=== PATIENT | female | born 1935 | race African-American/Black ===

== ENCOUNTER 2020-05-27 22:25 | Inpatient (IN) ==
[2020-05-27 22:51] LABS: Basophils % 0.3 % (0.0-0.8); Hematocrit 38.3 VOL% (35.7-47.0); Hemoglobin 12.3 GM/DL (12.0-16.0); Immature Granulocytes % 0.4 %; Immature Granulocytes Absolute 0.03 #; Lymphocytes # 1.1 10*3/uL (1.4-4.0); Lymphocytes % 16.6 % (21.3-54.2); Mean Corpuscular HGB Conc 32.1 GM/DL (32-36); Mean Corpuscular Volume 80.1 FL (87-102); Mean Platelet Volume 9.9 FL (9.6-12.0); Monocytes % 9.7 % (1.7-12.7); Platelet Count 180 T/CUMM (130-400); Red Blood Count 4.78 MC/CUMM (3.8-5.5); Red Cell Distribution Width 13.8 % (9.3-17.3); White Blood Count 6.8 T/CUMM (4-12)
[2020-05-27 23:06] LABS: INR 1.1; PT Patient Result 11.7 SECS (9.8-11.9); Partial Thromboplastin Time 29.5 SECS (23.9-33.8)
[2020-05-27 23:10] LABS: Albumin 3.3 G/DL (3.4-5.0); Bilirubin,Total 0.5 MG/DL (0.2-1.0); Calcium 8.4 MG/DL (8.5-10.1); Osmolality,Calculated 279.2 MOS/KG (273-304); Total Protein 7.5 G/DL (6.4-8.3)
[2020-05-27 23:13] LABS: Troponin I 0.047 NG/ML (0.00-0.045)
[2020-05-27 23:25] LABS: Apearance,Urine CLEAR (Clear); Bacteria,Urine Many /HPF (Few); Bilirubin,Urine Negative (Negative); Blood, Urine Small mg/dL (Negative); Glucose,Urine (UA) Negative (Negative); Ketones,Urine Negative (Negative); Nitrite,Urine Negative (Negative); Protein,Urine Negative; RBC,Urine 1 /HPF (0-4); Squamous Epithelial Cell,Urine Occasional /HPF (0-10); Urine Color Yellow (Yellow); Urine Specific Gravity 1.009 (1.001-1.035); Urine Urobilinogen < 2.0 EU/DL (0.2-1.0); WBC,Urine 3 /HPF (0-6)
[2020-05-27] MEDS ORDERED: POTASSIUM CHLORIDE 20 MEQ/15 ML UDCUP PO ONE (23:47)
[2020-05-28] MEDS ORDERED: ACETAMINOPHEN 325 MG TABLET PO PRN (00:38)
[2020-05-28 02:36] LABS: Uric Acid 8.5 MG/DL (2.6-6.0)
[2020-05-28] MEDS: ENOXAPARIN 60 MG/0.6 ML SYRINGE SUBCUT SCH ×3 (03:40→23:35)
[2020-05-28] MEDS: SODIUM CHLORIDE 0.9% 1,000 ML IV SCH ×2 (03:40→23:35)
[2020-05-28 07:02] LABS: Basophils % 0.2 % (0.0-0.8); Hematocrit 35.8 VOL% (35.7-47.0); Hemoglobin 11.8 GM/DL (12.0-16.0); Immature Granulocytes % 0.4 %; Immature Granulocytes Absolute 0.02 #; Lymphocytes # 1.4 10*3/uL (1.4-4.0); Lymphocytes % 30.9 % (21.3-54.2); Mean Corpuscular Volume 79.2 FL (87-102); Mean Platelet Volume 10.4 FL (9.6-12.0); Monocytes % 13.8 % (1.7-12.7); Neutrophils % 54.7 % (38.7-73.9); Platelet Count 154 T/CUMM (130-400); Red Blood Count 4.52 MC/CUMM (3.8-5.5); Red Cell Distribution Width 13.9 % (9.3-17.3); White Blood Count 4.6 T/CUMM (4-12)
[2020-05-28 07:52] LABS: Calcium 8.7 MG/DL (8.5-10.1); Risk Ratio 3.53; Thyroid Stimulating Hormone 1.22 uIU/ml (0.358-3.74); VLDL CHOLESTEROL 16.8 MG/DL
[2020-05-28] MEDS: atenoloL 50 MG TABLET PO SCH (08:41)
[2020-05-28] MEDS: ASPIRIN EC 81 MG TABLET PO SCH (08:42)
[2020-05-28] MEDS: PANTOPRAZOLE 40 MG TABLET PO SCH (08:42)
[2020-05-28] MEDS: POTASSIUM CHLORIDE 20 MEQ TABLET PO PRN ×5 (08:44→18:54)
[2020-05-29 06:09] LABS: Basophils % 0.6 % (0.0-0.8); Eosinophils % 0.3 % (0.00-10.9); Hematocrit 33.3 VOL% (35.7-47.0); Hemoglobin 10.8 GM/DL (12.0-16.0); Immature Granulocytes % 0.6 %; Immature Granulocytes Absolute 0.02 #; Lymphocytes # 1.1 10*3/uL (1.4-4.0); Lymphocytes % 29.8 % (21.3-54.2); Mean Corpuscular HGB Conc 32.4 GM/DL (32-36); Mean Corpuscular Volume 79.7 FL (87-102); Monocytes % 14.2 % (1.7-12.7); Neutrophils % 54.5 % (38.7-73.9); Platelet Count 141 T/CUMM (130-400); Red Blood Count 4.18 MC/CUMM (3.8-5.5); Red Cell Distribution Width 13.6 % (9.3-17.3); White Blood Count 3.6 T/CUMM (4-12)
[2020-05-29 06:28] LABS: Calcium 8.4 MG/DL (8.5-10.1)
[2020-05-29] MEDS: PANTOPRAZOLE 40 MG TABLET PO SCH (08:55)
[2020-05-29] MEDS: atenoloL 50 MG TABLET PO SCH (08:55)
[2020-05-29] MEDS: ASPIRIN EC 81 MG TABLET PO SCH (08:56)
[2020-05-29 11:46] VITALS: BP 108/86
[2020-05-29] MEDS: ENOXAPARIN 60 MG/0.6 ML SYRINGE SUBCUT SCH (13:40)
== END 2020-05-29 15:29 | disposition home health service (06) | DRG 682 ==
LOC: EDUNIT# → EDBD → N.ED 22:25 → N.EDINP 05-28 00:14 → SUATTDRO 05-28 00:14 → N.EDINP 05-28 01:04 → N.TELEN 05-28 01:08 → N.2E 05-29 01:44
PROVIDERS: ADMIT Internal Medicine; ATTEND Internal Medicine